=== PATIENT | female | born 1985 | race Caucasian/White ===

== ENCOUNTER → 2020-10-30 | Outpatient (CLI) | payer SELFPAY ==
--- NOTE | 2020-10-30 16:54 | RAD ---
BILATERAL DIAGNOSTIC 3-D MAMMOGRAPHY AND BREAST ULTRASOUND History: 35-year-old female with bilateral outer breast lumps. Comparison: None. This is a baseline examination. Technique: Routine MLO and CC tomosynthesis (3D) digital views performed. Images reviewed by the radi ologist at dedicated workstation. Findings: Breast Tissue Density A : The breasts are almost entirely fatty. There is a benign low-lying right axillary lymph node. There are no dominant masses, suspicious microcalcifications or architectural distortion. Real-time ultrasound imaging of the upper outer right and left breast is performed. There are normal fatty breast tissues identified in the upper outer right and left breast. No solid m ass or architectural distortion is identified. There are benign lymph nodes in the right and left axi lla. There is no adenopathy. IMPRESSION: No mammographic or sonographic evidence of malignancy. Recommend routine mammogram screening. BI-RADS category 2: Benign findings. The images were reviewed with computer-aided detection. Patient information is entered into the reminder system with a target due date for the next screening mammogram. Mammography is the most sensitive method for finding small breast cancers, but it does not detect the m all and is not a substitute for careful clinical examination. A negative mammogram does not negate a clinically suspicious finding and should not result in delay in biopsying a clinically suspicious a bnormality. "Our facility is accredited by the [employer] Mammography Program." Electronically signed by: Dima Rodriguez MD (10/30/2020 4:51 PM) [id number]
== END ==
LOC: MAMMO 13:56
PROVIDERS: ATTEND Nurse Practitioner Family
DX: N63.21 Unspecified lump in the left breast, upper outer quadrant (principal); N63.11 Unspecified lump in the right breast, upper outer quadrant
CPT/HCPCS: 76641; 77066; G0279; 77062